=== PATIENT | male | born 1990 | race Caucasian/White ===

== ENCOUNTER 2017-10-18 19:26 | Emergency (ER) | payer OTHER ==
[~2017-10-18] VITALS: Ht 190.5 cm; Wt 75.0 kg
[~2017-10-18 19:26] MED LIST: CLON-529 PO
[2017-10-18] MEDS ORDERED: PHE12.5T PO (20:43)
[2017-10-18] MEDS ORDERED: proMETHazine 25mg tablet PO ONE (20:45)
[2017-10-18 21:04] VITALS: BP 115/65
== END 2017-10-18 21:09 | disposition home or self-care (01) ==
LOC: ER 19:27
DX: K92.0 Hematemesis (principal); F11.10 Opioid abuse, uncomplicated; Z79.899 Other long term (current) drug therapy
CPT/HCPCS: 99283; Q0169

== ENCOUNTER 2018-01-03 12:45 | Emergency (ER) | payer OTHER ==
[~2018-01-03] VITALS: Ht 188 cm; Wt 70.0 kg
[~2018-01-03 12:45] MED LIST changes: +PHE12.5T PO
[2018-01-03 13:17] VITALS: BP 95/52
== END 2018-01-03 13:48 | disposition home or self-care (01) ==
LOC: ER 12:46
DX: T63.441A Toxic effect of venom of bees, accidental (unintentional), initial encounter (principal); F11.90 Opioid use, unspecified, uncomplicated; Z79.899 Other long term (current) drug therapy; Y92.89 Other specified places as the place of occurrence of the external cause
CPT/HCPCS: 99281